=== PATIENT | male | born 1965 | race Two or more races ===

== ENCOUNTER 2018-01-12 22:41 | Emergency (ER) | payer OTHER ==
[~2018-01-12] VITALS: Ht 167.6 cm; Wt 72.6 kg
[2018-01-12] MEDS ORDERED: Sodium Chloride 500ML 500 ML IV ONE (22:52)
[2018-01-12] MEDS ORDERED: Isovue-300 100ml vial INJ PRN (23:00)
[2018-01-12 23:19] VITALS: BP 118/85
[2018-01-12 23:26] LABS: HEMATOCRIT 31.7 % (42.0-52.0); HEMOGLOBIN 9.9 G/DL (14.2-18.0); MEAN CORPUSCULAR VOLUME 75 FL (80-99); PLATELET COUNT 64 K/UL (150-450); RED BLOOD COUNT 4.23 M/UL (4.70-6.10); WHITE BLOOD COUNT 4.5 K/UL (4.8-10.8)
[2018-01-12 23:46] LABS: ANION GAP 6 mmol/L (5-15); BLOOD UREA NITROGEN 19 mg/dL (7-18); CALCIUM 8.3 MG/DL (8.5-10.1); CARBON DIOXIDE 29 MMOL/L (21-32); CHLORIDE 100 MMOL/L (98-107); POTASSIUM 4.5 MMOL/L (3.5-5.1); SODIUM 135 MMOL/L (136-145)
[2018-01-12 23:50] LABS: ALANINE AMINOTRANSFERASE 42 U/L (12-78); ALBUMIN 2.7 G/DL (3.4-5.0); ALBUMIN/GLOBULIN RATIO 0.5 (1.0-2.7); ALKALINE PHOSPHATASE 138 U/L (46-116); ASPARTATE AMINO TRANSFERASE 26 U/L (15-37); BILIRUBIN,TOTAL 0.5 MG/DL (0.2-1.0)
[2018-01-13 00:34] LABS: APPEARANCE,URINE CLEAR; BILIRUBIN, URINE NEGATIVE (NEGATIVE); COLOR,URINE PALE YELLOW; GLUCOSE, URINE (UA) NEGATIVE (NEGATIVE); KETONES,URINE NEGATIVE (NEGATIVE); LEUKOCYTE ESTERASE ,URINE 1+ (NEGATIVE); NITRITE,URINE NEGATIVE (NEGATIVE); PH,URINE 7 (4.5-8.0); PROTEIN,URINE NEGATIVE (NEGATIVE); UROBILINOGEN,URINE NORMAL MG/DL (0.0-1.0)
[2018-01-13 03:19] VITALS: BP 131/88
[2018-01-13 03:26] VITALS: BP 131/88
--- NOTE | 2018-01-13 03:26 | Emergency Room Report ---
History of Present Illness General Chief Complaint: Abdominal Pain Source: EMS Present Illness HPI 52-year-old male presents ED complaining of abdominal pain. Brought in by EMS from group home house. Patient noting epigastric pain, sharp, 5 out of 10, nonradiating. Patient notes abdominal distention. States he has cirrhosis and has often required drainage of his abdomen. Denies fevers or chills. Denies chest pain or shortness of breath. No other aggravating relieving factors. Denies any other associated symptoms Allergies: Coded Allergies: No Known Allergies (Unverified , 01/12/18) Patient History Past Medical History: HTN, [place] Past Surgical History: none Pertinent Family History: none Social History: Denies: smoking, alcohol use, drug use Immunizations: UTD Reviewed Nursing Documentation: PMH: Agreed; PSxH: Agreed Nursing Documentation-PMH Hx Cardiac Problems: Yes - Stent, [place] Hx Hypertension: Yes Review of Systems All Other Systems: negative except mentioned in HPI Physical Exam Vital Signs Date Time Temp Pulse Resp B/P (MAP) Pulse Ox O2 Delivery O2 Flow Rate FiO2 01/12/18 22:44 98.7 93 18 118/85 100 Room Air 98.8 Sp02 EP Interpretation: reviewed, normal General Appearance: no apparent distress, alert, GCS 15, non-toxic, thin Head: normocephalic, atraumatic Eyes: bilateral eye normal inspection, bilateral eye PERRL ENT: hearing grossly normal, normal pharynx, no angioedema, normal voice Neck: full range of motion, supple/symm/no masses Respiratory: chest non-tender, lungs clear, normal breath sounds, speaking full sentences Cardiovascular #1: regular rate, rhythm, no edema Cardiovascular #2: 2+ carotid (R), 2+ carotid (L), 2+ radial (R), 2+ radial (L) , 2+ dorsalis pedis (R), 2+ dorsalis pedis (L) Gastrointestinal: normal bowel sounds, no guarding, no rebound, distended Rectal: deferred Genitourinary: normal inspection, no CVA tenderness Musculoskeletal: back normal, gait/station normal, normal range of motion, non- tender Neurologic: alert, oriented x3, responsive, motor strength/tone normal, sensory intact, speech normal Psychiatric: judgement/insight normal, memory normal, mood/affect normal, no suicidal/homicidal ideation Reflexes: 3+ bicep (R), 3+ bicep (L), 3+ tricep (R), 3+ tricep (L), 3+ knee (R) , 3+ knee (L) Skin: normal color, no rash, warm/dry, well hydrated Lymphatic: no adenopathy Medical Decision Making Diagnostic Impression: Primary Impression: Ascites Qualified Codes: R18.8 - Other ascites Additional Impression: Cirrhosis Qualified Codes: K74.60 - Unspecified cirrhosis of liver ER Course Hospital Course 52 yo M presents with abd pain /distension. 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 After initial history and physical I ordered labs, IV fluids, and CT scan Labs - no leukocytosis, Hb/Hct stable, platelets 64. electrolytes ok CT abdomen and pelvis - ascites, cirrhosis no active bleeding. No signs of hypotension or shortness of breath. Patient will require paracentesis because of insurance patient will be transferred I feel this is a highly complex case requiring extensive working including EKG/ Rhythm strip, Xray/CT/US, Blood/urine lab work, repeat exams while in ED, and administration of strong opiates/narcotics for pain control, admission to hospital or close patient follow up. Diagnosis - ascites, cirrhosis transferred in serious condition Labs Test 01/12/18 23:10 01/12/18 23:15 White Blood Count 4.5 K/UL (4.8-10.8) Red Blood Count 4.23 M/UL (4.70-6.10) Hemoglobin 9.9 G/DL (14.2-18.0) Hematocrit 31.7 % (42.0-52.0) Mean Corpuscular Volume 75 FL (80-99) Mean Corpuscular Hemoglobin 23.4 PG (27.0-31.0) Mean Corpuscular Hemoglobin Concent 31.2 G/DL (32.0-36.0) Red Cell Distribution Width 20.0 % (11.6-14.8) Platelet Count 64 K/UL (150-450) Mean Platelet Volume 7.4 FL (6.5-10.1) Neutrophils (%) (Auto) % (45.0-75.0) Lymphocytes (%) (Auto) % (20.0-45.0) Monocytes (%) (Auto) % (1.0-10.0) Eosinophils (%) (Auto) % (0.0-3.0) Basophils (%) (Auto) % (0.0-2.0) Sodium Level 135 MMOL/L (136-145) Potassium Level 4.5 MMOL/L (3.5-5.1) Chloride Level 100 MMOL/L (98-107) Carbon Dioxide Level 29 MMOL/L (21-32) Anion Gap 6 mmol/L (5-15) Blood Urea Nitrogen 19 mg/dL (7-18) Creatinine 1.0 MG/DL (0.55-1.30) Estimat Glomerular Filtration Rate > 60 mL/min (>60) Glucose Level 207 MG/DL (74-106) Calcium Level 8.3 MG/DL (8.5-10.1) Total Bilirubin 0.5 MG/DL (0.2-1.0) Aspartate Amino Transf (AST/SGOT) 26 U/L (15-37) Alanine Aminotransferase (ALT/SGPT) 42 U/L (12-78) Alkaline Phosphatase 138 U/L (46-116) Total Protein 7.8 G/DL (6.4-8.2) Albumin 2.7 G/DL (3.4-5.0) Globulin 5.1 g/dL Albumin/Globulin Ratio 0.5 (1.0-2.7) Lipase 249 U/L (73-393) Urine Color Pale yellow Urine Appearance Clear Urine pH 7 (4.5-8.0) Urine Specific [place] 1.010 (1.005-1.035) Urine Protein Negative (NEGATIVE) Urine Glucose (UA) Negative (NEGATIVE) Urine Ketones Negative (NEGATIVE) Urine Occult Blood 5+ (NEGATIVE) Urine Nitrite Negative (NEGATIVE) Urine Bilirubin Negative (NEGATIVE) Urine Urobilinogen Normal MG/DL (0.0-1.0) Urine Leukocyte Esterase 1+ (NEGATIVE) Urine RBC 40-60 /HPF (0 - 0) Urine WBC 0-2 /HPF (0 - 0) Urine Squamous Epithelial Cells None /LPF (NONE/OCC) Urine Bacteria Few /HPF (NONE) CT/MRI/US Diagnostic Results CT/MRI/US Diagnostic Results : Imaging Test Ordered: CT A/P Impression Cirrhotic liver. Portal systemic collaterals to include periesophageal varices with splenomegaly and large volume of ascites suggesting portal hypertension. Nonocclusive thrombus within the splenic vein, extra hepatic portal vein and SMV. Marked thickening of the gastric rugae which may be secondary to hepatic gastropathy versus gastritis. Moderate bowel thickening of the small bowel which may represent hepatic enteropathy versus a nonspecific enteritis or related to partial SMV thrombus. Gallstones. No CT evidence of acute cholecystitis. Kidneys, ureters and urinary bladder are unremarkable. Fat-containing ventral hernia. No acute osseous abnormality. Last Vital Signs Date Time Temp Pulse Resp B/P (MAP) Pulse Ox O2 Delivery O2 Flow Rate FiO2 01/13/18 03:19 98.8 88 18 131/88 100 Room Air 98.8 Status: improved Disposition: XFER SHT-TRM HOSP Condition: Serious Referrals: [facility],REFERRING (PCP) Harpal Soriano MD Jan 13, 2018 03:26
--- NOTE | 2018-01-13 09:18 | Diagnostic Imaging Report ---
Clinical Indication: Abdominal pain for 3 hours Technique: No oral contrast utilized, per emergency room physician request IV administration nonionic contrast. Venous phase spiral acquisition obtained through the abdomen and pelvis. Multiplanar reconstructions were generated. Total dose length product 686.32 mGycm. CTDIvol(s) 12.54 mGy. Dose reduction achieved using automated exposure control Comparison: none Findings: The liver demonstrates surface nodularity, relative atrophy of the right lobe and hypertrophy of the left lobe. No focal abnormality demonstrated. The spleen is markedly enlarged, measuring up to 18 cm long axis dimension. There are perigastric and periesophageal varices. There are inferior mesenteric vein varices There is a small to moderate amount of ascites fluid. There is considerable congestion of the mesenteric fat. There is partial thrombosis of the portal vein, which nonetheless remains patent, thrombus occupying approximately 50% of the lumen. Thrombus is also seen within the splenic vein, likewise narrowing approximately 50% of the lumen. There is more extensive thrombosis of the superior mesenteric vein, portions of the main trunk of which are is completely occluded. The thrombus appears to be low in attenuation consistent with bland thrombus. Thrombus appears to extend into multiple varices. The gallbladder contains gallstones. There is no biliary ductal dilatation. The pancreas is unremarkable. The adrenals are grossly unremarkable, not well visualized. The kidneys are unremarkable. No retroperitoneal or mesenteric mass or adenopathy. No pelvic mass or adenopathy. Unremarkable bladder The included lung bases are clear. The bones demonstrate degenerative spondylosis changes, minimal. There is a fat-containing ventral hernia. Small bowel loops are diffusely mildly dilated and demonstrate slightly enhancing thick dubois. There are a few nondistended small bowel loops but no definite transition point. The appendix is not definitely visualized. No evidence of diverticulosis or diverticulitis. Moderate amount of retained stool noted in the colon. 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 Thrombus also extends into the portal vein and splenic vein, narrowing the lumen of each by about 50%. There is also thrombosis of several of the perigastric and periesophageal varices Mildly dilated small bowel with mildly thickened enhancing dubois. This could indicate enteritis or congestive/ischemic changes related to the superior mesenteric vein thrombosis. A few nondilated small bowel loops also raises possibility of small bowel obstruction, although this is less likely Cholelithiasis Other findings as noted, including small fat-containing ventral hernia, minimal degenerative spondylosis This agrees with the preliminary interpretation provided overnight by [facility] teleradiology service. The CT scanner at [facility] is accredited by the [employer] and the scans are performed using protocols designed to limit radiation exposure to as low as reasonably achievable to attain images of sufficient resolution adequate for diagnostic evaluation.
== END 2018-01-13 03:26 | disposition short-term general hospital (02) ==
LOC: EDBD 22:41 → EMR 23:02
DX: R18.8 Other ascites (principal); K74.60 Unspecified cirrhosis of liver; I10 Essential (primary) hypertension; I25.2 Old myocardial infarction; K80.20 Calculus of gallbladder without cholecystitis without obstruction; K76.6 Portal hypertension; I85.10 Secondary esophageal varices without bleeding; D73.89 Other diseases of spleen
CPT/HCPCS: 36415; 74177; 80053; 81003; 83690; 85025; 99284; Q9967